=== PATIENT | male | born 1980 | race Caucasian/White ===

== ENCOUNTER → 2017-03-29 | Outpatient (CLI) | payer OTHER ==
--- NOTE | 2017-03-29 18:32 | DIAGNOSTIC IMAGING REPORT ---
RIGHT SHOULDER 3 VIEWS CLINICAL HISTORY: Chronic right shoulder pain. FINDINGS: 3 views of right shoulder are obtained. No prior studies are available for comparison at the time of dictation. The skeletal structures are well mineralized. No fracture is seen. The glenohumeral and acromioclavicular joints appear maintained. The overlying soft tissues are within normal limits. Imaged right lung parenchyma appears clear. IMPRESSION: No acute bony abnormality is seen in the right shoulder. Electronically signed by: Keron Peace M.D. 03/29/2017 6:30 PM Dictated Date/Time: 03/29/2017 6:29 PM
== END | disposition home or self-care (01) ==
LOC: C.RAD 17:56
PROVIDERS: ATTEND Physician Assistant
DX: M25.511 Pain in right shoulder (principal)

== ENCOUNTER → 2017-04-01 | Outpatient (CLI) | payer OTHER ==
--- NOTE | 2017-04-01 08:32 | DIAGNOSTIC IMAGING REPORT ---
MRI OF THE RIGHT SHOULDER WITHOUT CONTRAST CLINICAL HISTORY: Right shoulder pain and limited range of motion. COMPARISON STUDY: Right shoulder radiographs March 29, 2017. TECHNIQUE: Utilizing a 1.5 Kaya magnet and dedicated coil, multiplanar, multiecho imaging of the right shoulder was performed without intravenous or intra-articular contrast. FINDINGS: Alignment of the right shoulder is anatomic. There is no suspicious marrow replacement. No mass or fluid collection shown adjacent to the right shoulder. There is extensive capsular hypertrophy of the right acromioclavicular joint with mild joint space narrowing and fluid within the joint space and marrow signal abnormality within the adjacent osseous structures. This is consistent with moderate osteoarthritis of the acromioclavicular joint. Glenohumeral joint is unremarkable. No labral tear is identified on this nonarthrogram exam. The proximal long head of the biceps tendon is intact. Note is made of amorphous increased T2 signal within the distal anterior fibers of supraspinatus consistent with tendinopathy and possible partial-thickness articular surface tear. In addition, there is increased T2 signal within the distal fibers of supraspinatus 2.2 cm proximal to the insertion within the bursal fibers. This suggests a partial thickness tear. There is no full-thickness supraspinatus tear. Infraspinatus is intact. There is linear fluid signal within distal subscapularis which could reflect interstitial tear. There is no full-thickness tear of subscapularis. IMPRESSION: 1. Tendinopathy with partial thickness tears of supraspinatus, as described above. No full-thickness rotator cuff tear. 2. Possible interstitial tear within subscapularis. 3. Moderate right acromioclavicular joint osteoarthritis with extensive capsular hypertrophy. Mild joint space narrowing with osteophytosis. Electronically signed by: Pb Patel M.D. 04/01/2017 8:30 AM Dictated Date/Time: 04/01/2017 8:20 AM
== END | disposition home or self-care (01) ==
LOC: C.MRI 07:29
PROVIDERS: ATTEND Physician Assistant
DX: M25.511 Pain in right shoulder (principal); M75.91 Shoulder lesion, unspecified, right shoulder; M19.011 Primary osteoarthritis, right shoulder